=== PATIENT | female | born 1970 | race Caucasian/White ===

== ENCOUNTER 2022-10-27 13:14 | Emergency (ER) | payer OTHER, SELFPAY ==
[2022-10-27] VITALS (25 sets, daily range): BP systolic 96–159; BP diastolic 53–82; PULSE 94–120; RESP 11–23; TEMP 36.6; O2SAT 95–100; BMI 23.3
--- NOTE | 2022-10-27 13:27 | DI.RAD.S_ITS ---
PROCEDURE: XR CHEST 1V INDICATIONS: chest pain TECHNIQUE: One view of the chest was acquired. COMPARISON: None. FINDINGS: Surgical changes and devices: None. Lungs and pleura: Lungs are clear. No pleural effusions or pneumothorax. Mediastinum: Mediastinal contours appear normal. Heart size is normal. Bones and chest wall: No suspicious bony lesions. Overlying soft tissues appear unremarkable. IMPRESSION: No acute cardiopulmonary disease. Dictated by: Kacy Sanchez M.D. on 10/27/2022 at 12:44 Approved by: Kacy Sanchez M.D. on 10/27/2022 at 12:44
--- NOTE | 2022-10-27 13:30 | ED_ITS ---
HPI - Chest Pain General Chief Complaint: Neuro Symptoms/Deficit Stated Complaint: chest pain Time Seen by Provider: 10/27/22 13:20 History of Present Illness HPI narrative: 51-year-old female nonsmoker with history of SVT presents by EMS for evaluation of chest pressure and racing heart rate that started this morning. She states that she had gone to sleep in her normal state of health and woke up this morning feeling well and after going for a short walk with her puppy a she start ed feeling her heart racing and she became a bit dizzy and lightheaded. Along with this she developed some chest pressure and numbness around her lips. She felt like her arms and legs were heavy. She tried performing vagal maneuvers which had little improvement. They were out on [facility] took a boat to a local dark and were met by EMS. On their initial assessment they found her to have rapid and shallow breathing and suspected hyperventilation as the source of the numbness, her initial heart rate was in the 140s, they attempted to ice hockey coach her to slow and control her breathing and ended up giving 2 rounds of midazolam 1 mg IV push and on arrival here she was feeling much better with heart rate in the 120s. She denies any change in medications or diet. She very rarely consumes alcohol and had a drink or 2 last night. She admits that she is been under significant stress at work for least the past few weeks and has been getting 3-4 hours of sleep. Additionally they just closed the paperwork on a new house which likely is adding to the situation. Two weeks ago she flew to [facility] and states that 6 weeks ago she started taking estrogen replacement. She denies any history of blood clot or cancer, she has no pain, swelling or redness in either extremity. Related Data Allergies Allergy/AdvReac Type Severity Reaction Status Date / Time bee venom protein (honey bee) Allergy Anaphylaxis Verified 10/27/22 13:52 codeine Allergy Anaphylaxis Verified 10/27/22 13:52 niacin Allergy Anaphylaxis Verified 10/27/22 13:52 walnut Allergy Anaphylaxis Verified 10/27/22 13:52 Greenbeans Allergy Anaphylaxis Uncoded 10/27/22 13:52 Review of Systems Review of Systems Narrative: GENERAL: Denies chills, fatigue, malaise, fever, sweats. HEENT: Denies sinus pain, ear pain, sore throat, difficulty swallowing, dizzine ss. RESPIRATORY: Denies dyspnea, cough, wheezing, hemoptysis, sputum. CARDIOVASCULAR: See HPI GASTROINTESTINAL: Denies nausea, vomiting, abdominal pain, diarrhea, constipation, melena. : Denies dysuria, frequency, incontinence, hematuria, urinary retention. MUSCULOSKELETAL: denies weakness, joint pain, or bony pain SKIN: Denies rash, skin lesions, or other NEUROLOGIC: see HPI PSYCHIATRIC: No concerning psychosocial issues. 12 point review of systems is negative except for those stated above Patient History Social History Smoking Status: Current some day smoker Exam Narrative Exam Narrative: GENERAL: [51] year old patient appears stated age. Well-developed patient, in mild distress. GCS 15 HEAD: Atraumatic. Normocephalic. EYES: Pupils equal round and reactive. Extraocular motions intact. No scleral icterus. No injection or drainage. ENT: Nose without bleeding, purulent drainage. Throat without erythema, tonsillar hypertrophy or exudate. Airway patent. NECK: Trachea midline. Non tender CARDIOVASCULAR: tachycardic but rerhythm without murmurs, gallops, or rubs. RESPIRATORY: Clear to auscultation. Breath sounds equal bilaterally. No wheezes, rales, or rhonchi. GASTROINTESTINAL: Abdomen soft, non-tender, nondistended. EXTREMITIES: No edema or joint tenderness. BACK: Nontender without deformity or crepitance. No flank tenderness. NEURO: AOx3. SKIN: No rash or erythema of visible areas NIH Stroke Scale 1a. LOC: Patient is alert and keenly responsive (0) 1b. LOC Questions: Patient answers both LOC questions accurately (0) 1c. LOC Commands: Patient performs both tasks correctly (0) 2. Best Gaze: Normal (0) 3. Visual: No visual loss (0) 4. Facial palsy: Normal symmetrical movements (0) 5. Motor arm: No drift (0) 6. Motor leg: No drift (0) 7. Limb ataxia: Absent (0) 8. Sensory: Normal (0) 9. Best language: No aphasia; normal (0) 10. Dysarthria: Normal (0) 11. Extinction and inattention: No abnormality (0) NIHSS: 0 Initial Vital Signs Initial Vital Signs: Vital Signs Pulse Rate 120 H 10/27/22 13:19 Pulse Oximetry 100 10/27/22 13:19 Scores PERC Score Age greater than or equal to 50 years: Yes Heart rate greater than or equal to 100 bpm: Yes Room Air O2 Sat less than 95%: Yes Unilateral leg swelling: No Recent trauma or surgery: No Hemoptysis: No Prior PE or DVT: No Hormone Use: Yes Total PERC Score: 4 Wells' Criteria for PE Clinical signs and symptoms of DVT: No PE is #1 Dx or equally likely: No Heart rate > 100: Yes Immobilization at least 3 days or surg in previous 4 weeks: No History of PE or DVT: No Hemoptysis: No Malignancy w/Treatment within 6 months or palliative: No Wells' PE Score total: 1.5 Course Orders Ordered: Discontinued Medications Sodium Chloride (Normal Saline 0.9%) 1,000 mls @ 150 mls/hr IV CONT FRANKLIN Last Infusion: 10/27/22 17:53 Dose: 0 mls/hr Documented By: Infusion: 10/27/22 17:35 Dose: 0 mls/hr Documented By: Admin: 10/27/22 13:53 Dose: 150 mls/hr Documented By: RB Vital Signs Vital signs: Vital Signs - 8 hr 10/27/22 13:31 10/27/22 13:19 10/27/22 13:20 Temperature 97.8 F Pulse Rate 114 H 120 H 117 H Respiratory Rate 14 Blood Pressure 115/82 Pulse Oximetry 100 100 100 Oxygen Delivery Method Room Air 10/27/22 13:20 10/27/22 13:30 10/27/22 13:30 Temperature Pulse Rate 117 H Respiratory Rate 17 Blood Pressure 159/82 H 144/74 H Pulse Oximetry 99 Oxygen Delivery Method 10/27/22 13:45 10/27/22 13:45 10/27/22 14:00 Temperature Pulse Rate 113 H Respiratory Rate 17 Blood Pressure 128/61 126/61 Pulse Oximetry 100 Oxygen Delivery Method 10/27/22 14:00 10/27/22 14:15 10/27/22 14:15 Temperature Pulse Rate 107 H 105 H Respiratory Rate 19 16 Blood Pressure 124/65 Pulse Oximetry 100 100 Oxygen Delivery Method 10/27/22 14:30 10/27/22 14:30 10/27/22 14:45 Temperature Pulse Rate 106 H 100 H Respiratory Rate 23 17 Blood Pressure 135/75 Pulse Oximetry 100 100 Oxygen Delivery Method 10/27/22 14:45 Temperature Pulse Rate Respiratory Rate Blood Pressure 131/65 Pulse Oximetry Oxygen Delivery Method MDM - Chest Pain Lab Data 10/27/22 13:05 10/27/22 13:05 Labs: Lab Results 10/27/22 10/27/22 10/27/22 Range/Units 13:05 13:05 13:05 WBC 11.1 H (4.5-11.0) X10^3/uL RBC 4.87 (4.0-5.2) X10^6/uL Hgb 14.7 (12.0-16.0) g/dL Hct 43.4 (36-46) % MCV 89.2 (80-100) fL MCH 30.2 (26-34) PG MCHC 33.8 (30-36) % RDW 13.2 (11.6-14.8) % Plt Count 217 (150-400) X10^3/uL Neut % (Auto) 45.6 L (50-75) % Lymph % (Auto) 37.8 (25-40) % [place] % (Auto) 14.1 H (3-14) % Eos % (Auto) 1.7 L (2-4) % Baso % (Auto) 0.8 (0-2) % Neut # (Auto) 5100 (3800-0394) /uL Lymph # (Auto) 4200 (8367-4888) /uL [place] # (Auto) 1600 H (0-900) /uL Eos # (Auto) 200 (0-450) /uL Baso # (Auto) 100 (0-100) /uL PT 12.3 (10.1-12.7) SECONDS INR 1.1 (0.9-1.3) D-Dimer 221 (<500) ng/ml Sodium 135 L (137-145) mmol/L Potassium 3.2 L (3.4-5.1) mmol/L Chloride 102 (98-107) mmol/L Carbon Dioxide 20 L (22-32) mmol/L BUN 13 (7-17) mg/dL Creatinine 0.66 (0.52-1.04) mg/dL Estimated GFR > 60 (>60) mL/min BUN/Creatinine Ratio 19.7 (6-22) Glucose 216 H (70-100) mg/dL Calcium 8.9 (8.4-10.2) mg/dL Total Bilirubin 1.0 (0.2-1.3) mg/dL AST 38 H (14-36) IU/L ALT 59 H (<35) IU/L Alkaline Phosphatase 113 (38-126) U/L Total Creatine Kinase 81 (30-135) U/L CK-MB (CK-2) TNP CK-MB (CK-2) Rel Index TNP Troponin I < 0.012 (0.01-0.034) ng/mL NT-Pro-B Natriuret Pep (<125) pg/mL Total Protein 7.9 (6.3-8.2) g/dL Albumin 4.8 (3.5-5.0) g/dL Globulin 3.1 (1.7-4.1) g/dL Albumin/Globulin Ratio 1.5 (1.0-2.8) Lipase 110 (23-300) U/L 10/27/22 10/27/22 Range/Units 13:05 16:03 WBC (4.5-11.0) X10^3/uL RBC (4.0-5.2) X10^6/uL Hgb (12.0-16.0) g/dL Hct (36-46) % MCV (80-100) fL MCH (26-34) PG MCHC (30-36) % RDW (11.6-14.8) % Plt Count (150-400) X10^3/uL Neut % (Auto) (50-75) % Lymph % (Auto) (25-40) % [place] % (Auto) (3-14) % Eos % (Auto) (2-4) % Baso % (Auto) (0-2) % Neut # (Auto) (7818-4868) /uL Lymph # (Auto) (5753-9945) /uL [place] # (Auto) (0-900) /uL Eos # (Auto) (0-450) /uL Baso # (Auto) (0-100) /uL PT (10.1-12.7) SECONDS INR (0.9-1.3) D-Dimer (<500) ng/ml Sodium (137-145) mmol/L Potassium (3.4-5.1) mmol/L Chloride (98-107) mmol/L Carbon Dioxide (22-32) mmol/L BUN (7-17) mg/dL Creatinine (0.52-1.04) mg/dL Estimated GFR (>60) mL/min BUN/Creatinine Ratio (6-22) Glucose (70-100) mg/dL Calcium (8.4-10.2) mg/dL Total Bilirubin (0.2-1.3) mg/dL AST (14-36) IU/L ALT (<35) IU/L Alkaline Phosphatase (38-126) U/L Total Creatine Kinase 81 (30-135) U/L CK-MB (CK-2) TNP CK-MB (CK-2) Rel Index TNP Troponin I < 0.012 (0.01-0.034) ng/mL NT-Pro-B Natriuret Pep 13 (<125) pg/mL Total Protein (6.3-8.2) g/dL Albumin (3.5-5.0) g/dL Globulin (1.7-4.1) g/dL Albumin/Globulin Ratio (1.0-2.8) Lipase (23-300) U/L MDM Narrative Medical decision making narrative: CC: 51-year-old female nonsmoker with high heart rate, dizziness and numbness around her mouth Complicating co-morbidities: age, history of SVT, travel, on estrogen Data collected from: Patient Medical records reviewed: Prior notes reviewed in our EMR Differential considered, but not limited to: SVT versus electrolyte abnormality versus other tachyarrhythmia versus pulmonary embolism versus stroke versus other Exam documented above, pertinent findings include: alert and oriented, normal NIH stroke scale, patient tachycardic but regular, no increased work of breathing or use of accessory muscles Lab Test results independently reviewed as above. Pertinent findings: Independently reviewed EKG as above Imaging studies independently reviewed: Scores Used: wells, PERC, NIH Treatments: fluids Re-evaluations: Patient feeling much better, no orthostasis, ambulatory in the department Discussion: Patient presents for elevation of high heart rate and near-syncope. Based on her history and physical exam including prior history of SVT the most plausible diagnosis seems to likely be SVT which converted resulting in some persistence of sinus tachycardia over the course of a few hours. She does report a longstanding history of sinus tachycardia which typically runs in the upper 90s. Her history and physical exam is very reassuring as is response to therapies. Multiple diagnoses considered as noted above, however there is no ongoing suspicion of the possibility of cardiac ischemia, other tachyarrhythmias seem unlikely and have not presented themselves during this visit. Pulmonary embolism considered but thought unlikely given lack of elevated D-dimer. Electrolytes and other considered but thought unlikely given normal labs. Over the course of the visit she returns to her baseline, is alert and oriented, ambulatory as noted and there is no further indication for ongoing evaluation and workup. Disposition: see below, along with detailed discharge instructions that have been reviewed with patient as well as indications for ED re-evaluation and additional outpatient follow up Discharge Plan Departure Patient Disposition: Home Clinical Impression: Tachycardia Instructions: DI for Tachycardia Activity Restrictions/Additional Instructions: *You have been diagnosed with [ tachycardia and associated symptoms such as lightheadedness and chest pressure. As we discussed your history and physical exam as well as EKGs, labs and imaging are very reassuring and there is no evidence to suggest heart attack, blood clot, stroke or other diagnosis that would require a specific or immediate intervention.] *What to do: *Please continue to take your regular medications as directed. *Please follow up with your primary care provider in 2-3 days, call for an appointment. Let them know you were seen in the Emergency Department and that we ask that you be seen in follow up. We will electronically transmit a record of today's note if your PCP is in our system *If you do not have a primary care provider please contact the [facility] Resource line at [phone]. They will ask some questions about your medical history and help get you set up with a doctor in the community. *Return to Emergency Department if you should have any new, worsening or concerning symptoms, such as [fever greater than 101 F, shaking chills, worsening pain, persistent vomiting or other bothersome symptoms] Stand Alone Forms: Patient Portal/API
[2022-10-27 13:45] LABS: Add Manual Diff / Slide Review NO; Basophils Absolute Auto 100 /uL (0-100); Basophils Percent Auto 0.8 % (0-2); Eosinophils Absolute Auto 200 /uL (0-450); Eosinophils Percent Auto 1.7 % (2-4); Hematocrit 43.4 % (36-46); Hemoglobin 14.7 g/dL (12.0-16.0); Lymphocytes Absolute Auto 4200 /uL (1100-4500); Lymphocytes Percent Auto 37.8 % (25-40); Mean Corpuscular HGB Conc 33.8 % (30-36); Mean Corpuscular Hemoglobin 30.2 PG (26-34); Mean Corpuscular Volume 89.2 fL (80-100); Monocytes Absolute Auto 1600 /uL (0-900); Monocytes Percent Auto 14.1 % (3-14); Neutrophils Absolute Auto 5100 /uL (1500-7000); Neutrophils Percent Auto 45.6 % (50-75); Platelet Count 217 X10^3/uL (150-400); Red Blood Cell Count 4.87 X10^6/uL (4.0-5.2); Red Cell Distribution Width 13.2 % (11.6-14.8); White Blood Cell Count 11.1 X10^3/uL (4.5-11.0)
[2022-10-27] MEDS: SODIUM CHLORIDE 0.9% 1,000 ML 150 ML IV (13:53)
[2022-10-27 13:55] LABS: INR 1.1 (0.9-1.3); Prothrombin Time 12.3 SECONDS (10.1-12.7)
[2022-10-27 13:56] LABS: Alanine Aminotransferase 59 IU/L (<35); Albumin 4.8 g/dL (3.5-5.0); Albumin Globulin Ratio 1.5 (1.0-2.8); Alkaline Phosphatase 113 U/L (38-126); Aspartate Aminotransferase 38 IU/L (14-36); BUN Creatinine Ratio 19.7 (6-22); Blood Urea Nitrogen 13 mg/dL (7-17); Calcium 8.9 mg/dL (8.4-10.2); Carbon Dioxide 20 mmol/L (22-32); Chloride 102 mmol/L (98-107); Creatine Kinase 81 U/L (30-135); Estimated Glomerular Filt Rate > 60 mL/min (>60); Globulin 3.1 g/dL (1.7-4.1); Glucose 216 mg/dL (70-100); HEMOLYSIS 30 (0-50); Lipase 110 U/L (23-300); Potassium 3.2 mmol/L (3.4-5.1); Sodium 135 mmol/L (137-145); Total Protein 7.9 g/dL (6.3-8.2)
[2022-10-27 13:57] LABS: D Dimer 221 ng/ml (<500)
[2022-10-27 14:05] LABS: NT-proBNP (BNP-Adult 18+) 13 pg/mL (<125)
[2022-10-27 14:08] LABS: Troponin I < 0.012 ng/mL (0.01-0.034)
[2022-10-27 16:21] LABS: Creatine Kinase 81 U/L (30-135)
[2022-10-27 16:34] LABS: Troponin I < 0.012 ng/mL (0.01-0.034)
== END 2022-10-27 17:53 | disposition home or self-care (01) ==
PROVIDERS: Emergency Provider Emergency Medicine
DX: R07.9 Chest pain, unspecified (principal); R00.0 Tachycardia, unspecified
CPT/HCPCS: 36415; 71045; 80053; 82550; 83690; 83880; 84484; 85025; 85379; 85610; 93005; 93010; 99284; 99285